=== PATIENT | male | born 1970 | race Caucasian/White ===

== ENCOUNTER → 2018-02-11 09:59 | Outpatient (CLI) | payer OTHER, SELFPAY ==
[2018-02-11 11:14] LABS: Add Manual Diff / Slide Review NO; Basophils Percent Auto 1.2 % (0-2); Eosinophils Percent Auto 7.9 % (2-4); Hematocrit 48.5 % (41-53); Hemoglobin 16.4 g/dL (13.5-17.5); Lymphocytes Percent Auto 32.3 % (25-40); Mean Corpuscular HGB Conc 33.9 % (30-36); Mean Corpuscular Hemoglobin 31.6 PG (26-34); Mean Corpuscular Volume 93.2 fL (80-100); Monocytes Percent Auto 7.1 % (3-14); Neutrophils Absolute Auto 3100 /uL (3000-5900); Neutrophils Percent Auto 51.5 % (50-75); Platelet Count 231 X10^3/uL (150-400); Red Cell Distribution Width 12.6 % (11.6-14.8)
[2018-02-11 17:21] LABS: Thyroid Stimulating Hormone 3.01 uIU/mL (0.47-4.68)
== END ==
PROVIDERS: PCP Naturopath; Visit Provider Naturopath
DX: D70.9 Neutropenia, unspecified (principal)
CPT/HCPCS: 36415; 84443; 85025

== ENCOUNTER → 2019-05-06 10:21 | Outpatient (CLI) | payer OTHER, SELFPAY ==
[2019-05-06 11:22] LABS: Add Manual Diff / Slide Review NO; Basophils Absolute Auto 100 /uL (0-100); Basophils Percent Auto 1.6 % (0-2); Eosinophils Absolute Auto 300 /uL (0-450); Eosinophils Percent Auto 7.2 % (2-4); Hematocrit 46.6 % (41-53); Lymphocytes Absolute Auto 1300 /uL (1100-4500); Lymphocytes Percent Auto 27.8 % (25-40); Mean Corpuscular HGB Conc 34.4 % (30-36); Mean Corpuscular Hemoglobin 32.6 PG (26-34); Mean Corpuscular Volume 94.7 fL (80-100); Monocytes Absolute Auto 400 /uL (0-900); Monocytes Percent Auto 8.7 % (3-14); Neutrophils Absolute Auto 2600 /uL (1500-7000); Neutrophils Percent Auto 54.7 % (50-75); Platelet Count 239 X10^3/uL (150-400); Red Blood Cell Count 4.93 X10^6/uL (4.5-5.9); Red Cell Distribution Width 12.7 % (11.6-14.8); White Blood Cell Count 4.7 X10^3/uL (4.5-11.0)
[2019-05-06 11:32] LABS: Alanine Aminotransferase 21 IU/L (<50); Albumin 4.7 g/dL (3.5-5.0); Alkaline Phosphatase 45 U/L (38-126); Aspartate Aminotransferase 34 IU/L (17-59); BUN Creatinine Ratio 15.6 (6-22); Bilirubin Total 1.3 mg/dL (0.2-1.3); Blood Urea Nitrogen 14 mg/dL (9-20); Calcium 9.8 mg/dL (8.4-10.2); Carbon Dioxide 31 mmol/L (22-32); Chloride 103 mmol/L (98-107); Cholesterol 181 mg/dL (140-199); Estimated Glomerular Filt Rate > 60.0 mL/min (>60); Globulin 2.4 g/dL (1.7-4.1); Glucose 96 mg/dL (70-100); HDL Cholesterol 71 mg/dL (40-60); HEMOLYSIS < 15 (0-50); LDL Cholesterol Calculated 102 mg/dL (<100); Potassium 4.7 mmol/L (3.4-5.1); Sodium 142 mmol/L (137-145); Total Protein 7.1 g/dL (6.3-8.2); Triglycerides 42 mg/dL (35-150)
[2019-05-06 12:03] LABS: Thyroid Stimulating Hormone 1.88 uIU/mL (0.47-4.68)
== END ==
PROVIDERS: PCP Naturopath; Visit Provider Naturopath
DX: Z00.00 Encounter for general adult medical examination without abnormal findings (principal)
CPT/HCPCS: 36415; 80053; 80061; 84443; 85025

== ENCOUNTER → 2020-07-27 10:11 | Outpatient (CLI) | payer OTHER, SELFPAY ==
[2020-07-27 12:15] LABS: Add Manual Diff / Slide Review NO; Basophils Absolute Auto 100 /uL (0-100); Basophils Percent Auto 1.2 % (0-2); Eosinophils Absolute Auto 300 /uL (0-450); Eosinophils Percent Auto 5.2 % (2-4); Hematocrit 48.8 % (41-53); Hemoglobin 16.1 g/dL (13.5-17.5); Lymphocytes Absolute Auto 1500 /uL (1100-4500); Lymphocytes Percent Auto 31.1 % (25-40); Mean Corpuscular Hemoglobin 31.6 PG (26-34); Mean Corpuscular Volume 95.6 fL (80-100); Monocytes Absolute Auto 400 /uL (0-900); Monocytes Percent Auto 8.2 % (3-14); Neutrophils Absolute Auto 2700 /uL (1500-7000); Neutrophils Percent Auto 54.3 % (50-75); Platelet Count 231 X10^3/uL (150-400); Red Blood Cell Count 5.11 X10^6/uL (4.5-5.9); Red Cell Distribution Width 12.7 % (11.6-14.8); White Blood Cell Count 4.9 X10^3/uL (4.5-11.0)
[2020-07-27 12:30] LABS: Alanine Aminotransferase 14 IU/L (<50); Albumin 4.7 g/dL (3.5-5.0); Albumin Globulin Ratio 1.7 (1.0-2.8); Alkaline Phosphatase 41 U/L (38-126); Aspartate Aminotransferase 25 IU/L (17-59); BUN Creatinine Ratio 16.3 (6-22); Bilirubin Total 1.8 mg/dL (0.2-1.3); Blood Urea Nitrogen 14 mg/dL (9-20); Calcium 9.7 mg/dL (8.4-10.2); Carbon Dioxide 32 mmol/L (22-32); Chloride 103 mmol/L (98-107); Cholesterol 188 mg/dL (140-199); Estimated Glomerular Filt Rate > 60.0 mL/min (>60); Globulin 2.7 g/dL (1.7-4.1); Glucose 88 mg/dL (70-100); HDL Cholesterol 88 mg/dL (40-60); HEMOLYSIS < 15 (0-50); LDL Cholesterol Calculated 89 mg/dL (<100); Potassium 4.2 mmol/L (3.4-5.1); Sodium 139 mmol/L (137-145); Total Protein 7.4 g/dL (6.3-8.2); Triglycerides 53 mg/dL (35-150)
[2020-07-27 12:31] LABS: C-Reactive Protein Quant < 0.5 mg/dL (<1.0)
[2020-07-27 12:41] LABS: Erythrocyte Sedimentation Rate 1 MM/HR (0-15)
[2020-07-27 12:55] LABS: TSH w/ Reflex to FT4 2.19 uIU/mL (0.47-4.68)
== END ==
PROVIDERS: PCP Nurse Practitioner Family; Referring Provider Nurse Practitioner Family; Visit Provider Nurse Practitioner Family
DX: Z00.00 Encounter for general adult medical examination without abnormal findings (principal); Z13.6 Encounter for screening for cardiovascular disorders; R19.4 Change in bowel habit
CPT/HCPCS: 36415; 80053; 80061; 84443; 85025; 85651; 86140

== ENCOUNTER → 2020-09-05 09:25 | Outpatient (CLI) | payer OTHER, SELFPAY ==
[2020-09-05 10:28] LABS: COVID19 -Nasal RAPID Negative (Negative)
== END ==
PROVIDERS: PCP Nurse Practitioner Family; Visit Provider Surgery
DX: Z20.822 Contact with and (suspected) exposure to COVID-19 (principal)
CPT/HCPCS: 87635; C9803

== ENCOUNTER 2020-09-06 13:18 | Day surgery (SDC) | payer OTHER, SELFPAY ==
[2020-09-06] VITALS (7 sets, daily range): BP systolic 108–130; BP diastolic 62–84; PULSE 63–79; RESP 10–18; TEMP 36.9–37; O2SAT 95–100
[2020-09-06] MEDS: LACTATED RINGERS 1,000 ML 200 ML IV (13:47)
--- NOTE | 2020-09-06 14:37 | PM.PREOP ---
Pre-operative Note Interval Note History & Physical reviewed/Exam performed by Physician: Yes Changes to H&P: No
[2020-09-06] MEDS: fentaNYL 250 MCG/5 ML INJ IV (15:00)
--- NOTE | 2020-09-06 15:33 | PM.OP.ENDO ---
Operative Date/Time/Diagnoses Date of procedure: 09/06/20 Time of procedure: 15:33 Pre-op diagnosis: Screening colonoscopy Post-op diagnosis: same Procedure & Clinicians Study performed: Colonoscopy Hemorrhoidal banding Same procedure as scheduled: Yes Indications: 50-year-old man no history of prior colonoscopy here for routine screening Surgeon: Tico Rosenbaum Procedure Notes Procedure in detail: Medications: Conscious sedation [id number] IV midazolam and 450mcg IV of fentanyl The history and physical was performed/updated and the patient is ASA class is 1. The procedure was discussed in detail with the patient. Potential risks complications including infection, bleeding, missed diagnosis, perforation, need for surgery, and were explained. Their questions were answered and informed consent was obtained. Patient was brought to the procedure room and placed standard monitoring equipment. The patient's vital signs were monitored continuously throughout the entire procedure. Prior to starting time-out was performed. The patient was placed in the left lateral recumbent position. Procedural sedation was administered. Examination began with a thorough inspection of the perianal area there was no evidence of fissures, fistulae, external hemorrhoids or cutaneous malignancy. The colonoscopy scope was then placed into the anal canal and was advanced to the cecum, which was identified by the ileocecal valve, the appendiceal orifice and the confluence of the taenia. The scope was then slowly withdrawn examining colon thoroughly in all directions, irrigating it of any residual stool. No masses or polyps Grade 2 internal hemorrhoids-Left lateral column banded x 2 under direct visualization The patient tolerated the procedure well. They will be discharged once criteria are met. The prep was of good/excellent quality. The withdrawl time was 9 minutes. The sedation time was 40 minutes. Specimen(s): none sent Complications: none Impression: normal colonoscopy Post-procedure Recommendations: Colonscopy in 10 years Follow up: as needed Disposition: same day surgery
[2020-09-06] MEDS: MIDAZOLAM 5 MG/5 ML VIAL IV (15:34)
== END 2020-09-06 16:35 | disposition home or self-care (01) ==
PROVIDERS: PCP Nurse Practitioner Family; Referring Provider Surgery; Visit Provider Surgery
PROC: 0DJD8ZZ Inspection of Lower Intestinal Tract, Via Natural or Artificial Opening Endoscopic (ICD-10-PCS; CPT 45378; principal; 2020-09-06 14:30)
DX: Z12.11 Encounter for screening for malignant neoplasm of colon (principal); K64.1 Second degree hemorrhoids
CPT/HCPCS: 45378; 46221; 99152; 99153; J2250; J3010

== ENCOUNTER → 2021-10-29 07:04 | Outpatient (CLI) | payer OTHER, SELFPAY ==
[2021-10-29 08:07] LABS: Add Manual Diff / Slide Review NO; Basophils Absolute Auto 100 /uL (0-100); Eosinophils Absolute Auto 300 /uL (0-450); Eosinophils Percent Auto 5.9 % (2-4); Hematocrit 43.6 % (41-53); Hemoglobin 15.2 g/dL (13.5-17.5); Lymphocytes Absolute Auto 1800 /uL (1100-4500); Lymphocytes Percent Auto 34.4 % (25-40); Mean Corpuscular HGB Conc 34.8 % (30-36); Mean Corpuscular Hemoglobin 32.1 PG (26-34); Mean Corpuscular Volume 92.2 fL (80-100); Monocytes Absolute Auto 400 /uL (0-900); Monocytes Percent Auto 7.7 % (3-14); Neutrophils Absolute Auto 2600 /uL (1500-7000); Platelet Count 262 X10^3/uL (150-400); Red Blood Cell Count 4.73 X10^6/uL (4.5-5.9); Red Cell Distribution Width 12.6 % (11.6-14.8); White Blood Cell Count 5.1 X10^3/uL (4.5-11.0)
[2021-10-29 08:15] LABS: Alanine Aminotransferase 15 IU/L (<50); Albumin 4.3 g/dL (3.5-5.0); Albumin Globulin Ratio 1.6 (1.0-2.8); Alkaline Phosphatase 39 U/L (38-126); Aspartate Aminotransferase 25 IU/L (17-59); BUN Creatinine Ratio 14.4 (6-22); Bilirubin Total 1.6 mg/dL (0.2-1.3); Blood Urea Nitrogen 14 mg/dL (9-20); Calcium 9.2 mg/dL (8.4-10.2); Carbon Dioxide 29 mmol/L (22-32); Chloride 103 mmol/L (98-107); Cholesterol 185 mg/dL (140-199); Estimated Glomerular Filt Rate > 60 mL/min (>60); Globulin 2.7 g/dL (1.7-4.1); Glucose 101 mg/dL (70-100); HDL Cholesterol 75 mg/dL (40-60); HEMOLYSIS < 15 (0-50); LDL Cholesterol Calculated 85 mg/dL (<100); Potassium 4.2 mmol/L (3.4-5.1); Sodium 141 mmol/L (137-145); Triglycerides 127 mg/dL (35-150)
== END ==
PROVIDERS: PCP Family Medicine; Referring Provider Nurse Practitioner Family; Visit Provider Nurse Practitioner Family
DX: Z00.00 Encounter for general adult medical examination without abnormal findings (principal); Z13.6 Encounter for screening for cardiovascular disorders
CPT/HCPCS: 36415; 80053; 80061; 85025

== ENCOUNTER → 2022-05-16 09:15 | Outpatient (CLI) | payer OTHER, SELFPAY ==
--- NOTE | 2022-05-16 09:17 | DI.RAD.S_ITS ---
PROCEDURE: XR KNEE RT 3V INDICATIONS: bilateral knee pain TECHNIQUE: 3 views of the knee were acquired. COMPARISON: None. FINDINGS: Bones: No fractures or dislocations. No suspicious bony lesions. Mild degenerative joint disease with small periarticular osteophytes. Soft tissues: Trace joint effusion. No suspicious soft tissue calcifications. IMPRESSION: Mild degenerative joint disease and trace knee joint effusion. Dictated by: Remigio Hu M.D. on 05/16/2022 at 15:03 Approved by: Remigio Hu M.D. on 05/16/2022 at 15:03
--- NOTE | 2022-05-16 09:17 | DI.RAD.S_ITS ---
PROCEDURE: XR KNEE LT 3V INDICATIONS: bilateral knee pain TECHNIQUE: 3 views of the knee were acquired. COMPARISON: None. FINDINGS: Bones: No fractures or dislocations. No suspicious bony lesions. Mild degenerative joint disease with small periarticular osteophytes. Soft tissues: Trace joint effusion. No suspicious soft tissue calcifications. IMPRESSION: Mild degenerative joint disease. Trace knee joint effusion. Dictated by: Remigio Hu M.D. on 05/16/2022 at 15:01 Approved by: Remigio Hu M.D. on 05/16/2022 at 15:02
== END ==
PROVIDERS: PCP Family Medicine; Referring Provider Family Medicine; Visit Provider Family Medicine
DX: M25.561 Pain in right knee (principal); M25.562 Pain in left knee; M16.0 Bilateral primary osteoarthritis of hip
CPT/HCPCS: 73562

== ENCOUNTER 2024-04-23 10:06 | Emergency (ER) | payer OTHER, SELFPAY ==
[2024-04-23 10:15] VITALS: BP 162/98; PULSE 65; RESP 16; TEMP 36.4; O2SAT 97; BMI 25.1
--- NOTE | 2024-04-23 11:09 | ED.GENADULT ---
HPI - General Adult General Chief complaint: Urogenital-Male Stated complaint: per pt prostate pain, sent by [facility] Time Seen by Provider: 04/23/24 10:13 History of Present Illness HPI narrative: Otherwise healthy 54-year-old gentleman presents with 4-5 days of increasing perineal pain. He states he had a vasectomy almost 20 years ago and 4 years after that had an episode of epididymitis. Pain initially felt similar to this. Over the ensuing couple days seemed to be localizing more to the perineal body, becoming more uncomfortable to the point that he was requiring ibuprofen during the day for discomfort and last night was unable to sleep due to the discomfort. He feels that the pain is radiating into the testicles rather than being initiated from the scrotum or testicles. He has no penile discharge, no new sexual partners, no fevers. He has a long history of internal hemorrhoids post banding. Still has some post defecation discharge for a couple of hours as a chronic issue. Notes that he has not been particularly constipated of late typically has a bowel movement every other day. Related Data Previous Rx's Medication Instructions Recorded levofloxacin 500 mg tablet 500 mg PO DAILY #10 tabs 04/23/24 Allergies Allergy/AdvReac Type Severity Reaction Status Date / Time No Known Drug Allergies Allergy Verified 05/15/23 08:16 Review of Systems Review of Systems Narrative: Pertinent positive and negative findings as per HPI Patient History Medical History Bilateral knee pain Mucous in stools (11/2019) Hemorrhoids Bowel habit changes (11/2019) Surgical History Anesthesia History of vasectomy (~2005) History of tonsillectomy (~1990) Family History Father History of heart disease Grandfather Smoker Grandmother Cancer Social History household members: spouse Smoking Status: Never smoker second hand exposure: No alcohol intake: current substance use type: does not use Smoking Status: Never smoker alcohol intake frequency: 0-2 drinks per day Substance Use Type: does not use Exam Initial Vital Signs Initial Vital Signs: Vital Signs Temperature 97.6 F 04/23/24 10:15 Pulse Rate 65 04/23/24 10:15 Respiratory Rate 16 04/23/24 10:15 Blood Pressure 162/98 H 04/23/24 10:15 Pulse Oximetry 97 04/23/24 10:15 Oxygen Delivery Method Room Air 04/23/24 10:15 General: Healthy appearing, in no acute distress. Able to give a complete and coherent history. Well-nourished well-developed HEENT: Moist mucous membranes, normal sclera with reactive pupils, Respiratory: Lungs are clear to auscultation, no wheezing no rales no rhonchi. Full and symmetrical air movement Cardiac: Regular rate and rhythm no murmurs no bruits Abdomen: Soft, tenderness in the left lower quadrant left pelvi, tenderness over the peroneal body with pain radiating into the scrotum without testicular abnormality, swelling or scrotal swelling or erythema Skin: Warm and dry, no rashes Neurologic: Grossly neurologically intact with no obvious asymmetries or abnormalities Extremities: No trauma, well perfused Psych: Cooperative, appropriate insight and affect Course Orders Ordered: ED Orders 04/23/24 11:08 CT abdomen pelvis w con Stat 04/23/24 11:24 Complete Blood Count AUTO DIFF Stat Comprehensive Metabolic Panel Stat Lactate (Lactic Acid) Stat Lipase Stat 04/23/24 11:35 Urinalysis and Microscopic Stat Discontinued Medications Ketorolac Tromethamine (Ketorolac 30 Mg/Ml Vial) 15 mg IV NOW ONE Stop: 04/23/24 11:09 Last Admin: 04/23/24 11:28 Dose: 15 mg Documented By: SALLY Vital Signs Vital signs: Vital Signs - 8 hr 04/23/24 10:15 04/23/24 11:54 04/23/24 11:54 Temperature 97.6 F Pulse Rate 65 57 L Respiratory Rate 16 Blood Pressure 162/98 H 138/89 Pulse Oximetry 97 99 Oxygen Delivery Method Room Air 04/23/24 12:00 04/23/24 12:00 04/23/24 12:30 Temperature Pulse Rate 58 L 60 Respiratory Rate Blood Pressure 141/93 H Pulse Oximetry 99 99 Oxygen Delivery Method Room Air 04/23/24 13:00 Temperature Pulse Rate 58 L Respiratory Rate Blood Pressure Pulse Oximetry 98 Oxygen Delivery Method Medical Decision Making Lab Data 04/23/24 11:24 04/23/24 11:24 Labs: Lab Results 04/23/24 04/23/24 Range/Units 11:24 11:35 WBC 4.5 (4.5-11.0) X10^3/uL RBC 4.99 (4.5-5.9) X10^6/uL Hgb 15.8 (13.5-17.5) g/dL Hct 47.1 (41-53) % MCV 94.4 (80-100) fL MCH 31.6 (26-34) PG MCHC 33.5 (30-36) % RDW 13.2 (11.6-14.8) % Plt Count 237 (150-400) X10^3/uL Neut % (Auto) 53.4 (50-75) % Lymph % (Auto) 31.1 (25-40) % [place] % (Auto) 9.8 (3-14) % Eos % (Auto) 4.7 H (2-4) % Baso % (Auto) 1.0 (0-2) % Neut # (Auto) 2400 (8719-4973) /uL Lymph # (Auto) 1400 (2913-2648) /uL [place] # (Auto) 400 (0-900) /uL Eos # (Auto) 200 (0-450) /uL Baso # (Auto) 0 (0-100) /uL Sodium 142 (137-145) mmol/L Potassium 4.1 (3.4-5.1) mmol/L Chloride 107 (98-107) mmol/L Carbon Dioxide 27 (22-32) mmol/L BUN 9 (9-20) mg/dL Creatinine 0.98 (0.66-1.25) mg/dL Estimated GFR > 60 (>60) mL/min BUN/Creatinine Ratio 9.2 (6-22) Glucose 91 (70-100) mg/dL Lactate 0.8 (0.7-2.1) mmol/L Calcium 9.6 (8.4-10.2) mg/dL Total Bilirubin 2.1 H (0.2-1.3) mg/dL AST 25 (17-59) IU/L ALT 13 (<50) IU/L Alkaline Phosphatase 41 (38-126) U/L Total Protein 7.1 (6.3-8.2) g/dL Albumin 4.5 (3.5-5.0) g/dL Globulin 2.6 (1.7-4.1) g/dL Albumin/Globulin Ratio 1.7 (1.0-2.8) Lipase 50 (23-300) U/L Urine Color Yellow Urine Appearance Clear Urine pH 7.5 (4.5-8.0) Ur Specific [place] 1.010 (1.000-1.035) Urine Protein Negative (Negative) Urine Glucose (UA) Negative (Negative) g/dL Urine Ketones Negative (NEGATIVE) Urine Occult Blood Negative (Negative) Urine Nitrate Negative (Negative) Urine Bilirubin Negative (NEGATIVE) Urine Urobilinogen 0.2 (0.2) E.U./dL Ur Leukocyte Esterase Negative (NEGATIVE) Urine RBC None seen (0-5/HPF) Urine WBC None seen (0-5/HPF) Ur Squamous Epith Cells None seen (0-5/HPF) Urine Bacteria None seen (None) Ur Culture Indicated? Cult not indicated Vol Urine Centrifuged 10ml (spun) Imaging Data CT scan - abdomen/pelvis: Radiologist's Impression: PROCEDURE: CT ABDOMEN PELVIS W CON INDICATIONS: pelvic pain TECHNIQUE: After the administration of intravenous contrast, axial sections acquired from the lung bases to the pubic symphysis. Coronal and sagittal reformats were performed. For radiation dose reduction, the following was used: automated exposure control, adjustment of mA and/or kV according to patient size. COMPARISON: None. FINDINGS: Image quality: Diagnostic. Lower Chest: No significant findings. ABDOMEN: Liver: No solid mass. Gallbladder: No radiopaque gallstones or wall thickening. Biliary ducts: No biliary dilation. Pancreas: No ductal dilation. Spleen: Size is within normal limits. Adrenal Glands: No adrenal nodules. Kidneys and Ureters: No hydronephrosis. No solid mass. No complex renal cystic lesion which requires follow up. Stomach and Bowel: Normal colonic caliber, without significant wall thickening. Normal appendix. No significant diverticular disease. Moderate colonic stool load. Peritoneum: No abnormal intraperitoneal fluid. No free air. Ventral Wall: No significant ventral hernia. Abdominal Nodes: No retroperitoneal or mesenteric adenopathy by size criteria. Vessels: Aorta and inferior vena cava are normal in size. PELVIS: Pelvic Organs: Unremarkable. Bladder: No bladder wall thickening, accounting for underdistention. Pelvic Nodes: No enlarged lymph nodes. Miscellaneous: No inguinal hernias are seen. Bones: No aggressive osseous abnormality. IMPRESSION: Moderate colonic stool load. Normal appendix. No diverticular disease. Dictated by: Jimenez Angelo M.D. on 04/23/2024 at 12:35 MDM Narrative Medical decision making narrative: CC: Increasing perineal body tenderness Complicating co-morbidities: History of prior painful internal hemorrhoids and banding, recent colonoscopy 3 years ago, Data collected from: patient Differential considered: Prostatitis, perirectal abscess, left pelvic abscess. Doubt Keyshawn's gangrene, torsion, testicular scrotal abscess Exam documented above, pertinent findings include: Tender over the perineal body into the left lower abdominal quadrant with mild guarding in the left lower quadrant/pelvis. Remainder of exam is benign Lab Test results independently reviewed as above. Pertinent findings: CBC is unremarkable, no leukocytosis Chemistries notable only for slightly elevated bilirubin at 2.1, pass bilirubin levels have been similarly elevated Urinalysis does not suggest infection or hematuria Imaging studies independently reviewed: CT scan does not suggest significant pelvic floor inflammation abscess or perirectal abscess. He does have quite a bit of stool Throughout his colon Treatments: Oral Levaquin, parenteral Toradol Discussion: 54-year-old gentleman with 4 days of increasing perineal pain and tenderness in history of very tender hemorrhoids. On clinical exam he has prostatitis. Urinalysis is unremarkable. CT scan does not suggest alternate explanation. There was no suggestion of testicular torsion, Keyshawn's gangrene, acute urinary retention. Will start him on 10 days of levofloxacin for presumed prostatitis. Also recommended MiraLax until his colon is cleaned out see if this helps with the overall discomfort. At this point there was no indication for additional imaging or hospitalization. Questions are answered and he is safe for discharge Discharge Plan Departure Patient Disposition: Home Clinical Impression: Acute prostatitis, Acute constipation Instructions: DI for Acute Prostatitis Activity Restrictions/Additional Instructions: Thank you for coming in today Based on your history, your physical exam and the fairly reassuring CT scan, I think that you have acute prostatitis. I am going to recommend 10 days of oral antibiotics, levofloxacin. Prescription was sent to [facility] in [place] In looking at the CT scan there was no evidence of perirectal abscess or other intra-abdominal abnormality. You do however have a significant amount of stool throughout your colon. Going to suggest that you use a scoop of MiraLax and a large glass of water every hours until your bowels start to move. You do not need to use as much as you did before colonoscopy but getting stool to quite soft I think will help with overall pain control If you find that you are developing fever, new symptoms or are unable to pee, you do need to return to the ER Prescriptions: New levofloxacin 500 mg tablet 500 mg PO DAILY Qty: 10 0RF Referrals: Yuval Rich MD [Primary Care Provider] - Stand Alone Forms: Patient Portal/API
[2024-04-23] MEDS: KETOROLAC 30 MG/ML VIAL 15 MG IV (11:28)
[2024-04-23 11:36] LABS: Add Manual Diff / Slide Review NO; Basophils Absolute Auto 0 /uL (0-100); Eosinophils Absolute Auto 200 /uL (0-450); Eosinophils Percent Auto 4.7 % (2-4); Hematocrit 47.1 % (41-53); Hemoglobin 15.8 g/dL (13.5-17.5); Lymphocytes Absolute Auto 1400 /uL (1100-4500); Lymphocytes Percent Auto 31.1 % (25-40); Mean Corpuscular HGB Conc 33.5 % (30-36); Mean Corpuscular Hemoglobin 31.6 PG (26-34); Mean Corpuscular Volume 94.4 fL (80-100); Monocytes Absolute Auto 400 /uL (0-900); Monocytes Percent Auto 9.8 % (3-14); Neutrophils Absolute Auto 2400 /uL (1500-7000); Neutrophils Percent Auto 53.4 % (50-75); Platelet Count 237 X10^3/uL (150-400); Red Blood Cell Count 4.99 X10^6/uL (4.5-5.9); Red Cell Distribution Width 13.2 % (11.6-14.8); White Blood Cell Count 4.5 X10^3/uL (4.5-11.0)
[2024-04-23 11:48] LABS: Appearance Urine UA CLEAR; Bilirubin Urine UA NEGATIVE (NEGATIVE); Color Urine UA YELLOW; Glucose Urine UA NEGATIVE (Negative); Ketones Urine UA NEGATIVE (NEGATIVE); Leukocyte Esterase Urine UA NEGATIVE (NEGATIVE); Nitrite Urine UA NEGATIVE (Negative); Occult Blood Urine UA NEGATIVE (Negative); Protein Urine UA NEGATIVE (Negative); Urobilinogen Urine UA 0.2 E.U./dL (0.2); pH Urine UA 7.5 (4.5-8.0)
[2024-04-23 11:48] LABS: Alanine Aminotransferase 13 IU/L (<50); Albumin 4.5 g/dL (3.5-5.0); Albumin Globulin Ratio 1.7 (1.0-2.8); Alkaline Phosphatase 41 U/L (38-126); Aspartate Aminotransferase 25 IU/L (17-59); BUN Creatinine Ratio 9.2 (6-22); Bilirubin Total 2.1 mg/dL (0.2-1.3); Blood Urea Nitrogen 9 mg/dL (9-20); Calcium 9.6 mg/dL (8.4-10.2); Carbon Dioxide 27 mmol/L (22-32); Chloride 107 mmol/L (98-107); Estimated Glomerular Filt Rate > 60 mL/min (>60); Globulin 2.6 g/dL (1.7-4.1); Glucose 91 mg/dL (70-100); HEMOLYSIS 19 (0-50); Lactate (Lactic Acid) 0.8 mmol/L (0.7-2.1); Lipase 50 U/L (23-300); Potassium 4.1 mmol/L (3.4-5.1); Sodium 142 mmol/L (137-145); Total Protein 7.1 g/dL (6.3-8.2)
[2024-04-23 11:54] VITALS: BP 138/89; PULSE 57; O2SAT 99
[2024-04-23 12:00] VITALS: BP 141/93; PULSE 58; O2SAT 99
[2024-04-23 12:00] LABS: Bacteria Urine None Seen; RBC Urine None Seen (0-5/HPF); Squamous Epithelial Cell Urine None Seen (0-5/HPF); Urine Volume 10mL (spun); WBC Urine None Seen (0-5/HPF)
[2024-04-23 12:01] LABS: Culture Indicated Urine Cult Not Indicated
[2024-04-23 12:30] VITALS: PULSE 60; O2SAT 99
[2024-04-23 13:00] VITALS: PULSE 58; O2SAT 98
[2024-04-23 13:19] VITALS: BP 131/78; PULSE 55; O2SAT 99
[2024-04-23] MEDS: levoFLOXacin 250 MG TABLET 500 MG PO (13:37)
== END 2024-04-23 13:41 | disposition home or self-care (01) ==
PROVIDERS: Emergency Provider Emergency Medicine; PCP Family Medicine
DX: N41.0 Acute prostatitis (principal); K59.00 Constipation, unspecified
CPT/HCPCS: 36415; 74177; 80053; 81001; 83605; 83690; 85025; 96374; 99284; J1885; Q9967

== ENCOUNTER → 2024-05-24 07:17 | Outpatient (CLI) | payer OTHER, SELFPAY ==
[2024-05-24 08:18] LABS: Add Manual Diff / Slide Review NO; Basophils Absolute Auto 100 /uL (0-100); Basophils Percent Auto 1.1 % (0-2); Eosinophils Absolute Auto 300 /uL (0-450); Eosinophils Percent Auto 4.8 % (2-4); Hematocrit 48.4 % (41-53); Hemoglobin 16.6 g/dL (13.5-17.5); Lymphocytes Absolute Auto 2400 /uL (1100-4500); Lymphocytes Percent Auto 40.7 % (25-40); Mean Corpuscular HGB Conc 34.3 % (30-36); Mean Corpuscular Hemoglobin 31.5 PG (26-34); Mean Corpuscular Volume 91.7 fL (80-100); Monocytes Absolute Auto 500 /uL (0-900); Monocytes Percent Auto 7.8 % (3-14); Neutrophils Absolute Auto 2700 /uL (1500-7000); Neutrophils Percent Auto 45.6 % (50-75); Platelet Count 253 X10^3/uL (150-400); Red Blood Cell Count 5.27 X10^6/uL (4.5-5.9); Red Cell Distribution Width 12.7 % (11.6-14.8); White Blood Cell Count 5.9 X10^3/uL (4.5-11.0)
[2024-05-24 08:43] LABS: Alanine Aminotransferase 16 IU/L (<50); Albumin 4.5 g/dL (3.5-5.0); Alkaline Phosphatase 41 U/L (38-126); Aspartate Aminotransferase 24 IU/L (17-59); BUN Creatinine Ratio 10.9 (6-22); Bilirubin Total 1.7 mg/dL (0.2-1.3); Blood Urea Nitrogen 11 mg/dL (9-20); Calcium 10.2 mg/dL (8.4-10.2); Carbon Dioxide 30 mmol/L (22-32); Chloride 104 mmol/L (98-107); Cholesterol 178 mg/dL (140-199); Estimated Glomerular Filt Rate > 60 mL/min (>60); Globulin 2.2 g/dL (1.7-4.1); Glucose 87 mg/dL (70-100); HDL Cholesterol 73 mg/dL (40-60); HEMOLYSIS < 15 (0-50); LDL Cholesterol Calculated 91 mg/dL (<100); Potassium 4.6 mmol/L (3.4-5.1); Sodium 140 mmol/L (137-145); Total Protein 6.7 g/dL (6.3-8.2); Triglycerides 68 mg/dL (35-150)
[2024-05-24 09:10] LABS: Prostate Specific Antigen 1.03 ng/mL (0.10-4.00)
[2024-05-24 09:11] LABS: TSH w/ Reflex to FT4 2.53 uIU/mL (0.47-4.68)
== END ==
PROVIDERS: PCP Family Medicine; Referring Provider Family Medicine; Visit Provider Family Medicine
DX: Z12.9 Encounter for screening for malignant neoplasm, site unspecified (principal); E78.89 Other lipoprotein metabolism disorders; Z00.00 Encounter for general adult medical examination without abnormal findings; Z13.6 Encounter for screening for cardiovascular disorders
CPT/HCPCS: 36415; 80053; 80061; 84153; 84443; 85025

== ENCOUNTER → 2024-06-02 13:24 | Outpatient (CLI) | payer OTHER, SELFPAY ==
[2024-06-02 15:57] LABS: HIV 1 & 2 Ab/Ag 4th Gen Combo NEGATIVE (NEGATIVE)
[2024-06-02 19:33] LABS: Urine N gonorrhoeae NOT DETECTED
[2024-06-02 20:10] LABS: Urine Chlamydia NOT DETECTED
[2024-06-04 00:36] LABS: HBsAg Screen Negative (Negative); Hepatitis A Antibody IgM Negative (Negative); Hepatitis B Core Antibody IgM Negative (Negative); Hepatitis C Antibody Non Reactive (Non Reactive)
[2024-06-04 03:12] LABS: RPR Screen Non Reactive (Non Reactive)
== END ==
PROVIDERS: PCP Family Medicine; Referring Provider Family Medicine; Visit Provider Family Medicine
DX: K62.89 Other specified diseases of anus and rectum (principal); N41.1 Chronic prostatitis; K64.9 Unspecified hemorrhoids; E80.6 Other disorders of bilirubin metabolism; M25.561 Pain in right knee; E83.52 Hypercalcemia; G89.29 Other chronic pain
CPT/HCPCS: 36415; 80074; 86592; 87389; 87491; 87591

== ENCOUNTER → 2025-05-29 07:08 | Outpatient (CLI) | payer OTHER, SELFPAY ==
[2025-05-29 07:53] LABS: Add Manual Diff / Slide Review NO; Hematocrit 46.1 % (41-53); Hemoglobin 16.0 g/dL (13.5-17.5); Lymphocytes Absolute Auto 2000 /uL (1100-4500); Mean Corpuscular HGB Conc 34.7 % (30-36); Mean Corpuscular Hemoglobin 32.1 PG (26-34); Mean Corpuscular Volume 92.6 fL (80-100); Platelet Count 263 X10^3/uL (150-400)
[2025-05-29 08:08] LABS: Alanine Aminotransferase 16 IU/L (<50); Albumin 4.5 g/dL (3.5-5.0); Albumin Globulin Ratio 1.8 (1.0-2.8); Alkaline Phosphatase 40 U/L (38-126); Blood Urea Nitrogen 13 mg/dL (9-20); Calcium 9.6 mg/dL (8.4-10.2); Carbon Dioxide 28 mmol/L (22-32); Chloride 104 mmol/L (98-107); Cholesterol 221 mg/dL (140-199); Estimated Glomerular Filt Rate > 60 mL/min (>60); Globulin 2.5 g/dL (1.7-4.1); Glucose 97 mg/dL (70-99); HDL Cholesterol 87 mg/dL (40-60); HEMOLYSIS < 15 (0-50); Potassium 4.3 mmol/L (3.4-5.1); Sodium 137 mmol/L (137-145); Total Protein 7.0 g/dL (6.3-8.2); Triglycerides 148 mg/dL (35-150)
[2025-05-29 08:36] LABS: TSH w/ Reflex to FT4 2.67 uIU/mL (0.47-4.68)
== END ==
PROVIDERS: PCP Family Medicine; Referring Provider Family Medicine; Visit Provider Family Medicine
DX: Z13.29 Encounter for screening for other suspected endocrine disorder (principal); Z12.5 Encounter for screening for malignant neoplasm of prostate; Z00.01 Encounter for general adult medical examination with abnormal findings; I10 Essential (primary) hypertension
CPT/HCPCS: 36415; 80053; 80061; 84443; 85025; G0103